=== PATIENT | female | born 1990 | race Caucasian/White ===

== ENCOUNTER 2018-11-18 13:55 | Emergency (ER) | payer BC ==
[~2018-11-18] VITALS: Ht 157.5 cm; Wt 110.5 kg
[~2018-11-18 13:55] MED LIST: LEVO25TA6 PO
[2018-11-18 14:17] VITALS: BP 151/43; PULSE 76; RESP 18; Ht 157.5 cm; Wt 110.5 kg
[2018-11-18] MEDS ORDERED: CYCL10TA7 PO (15:05)
[2018-11-18] MEDS ORDERED: NAPR-985 PO (15:05)
[2018-11-18] MEDS ORDERED: HYDR-4011 PO (15:05)
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
== END 2018-11-18 15:50 | disposition home or self-care (01) ==
LOC: FTE 13:55
DX: M54.2 Cervicalgia (principal); J45.909 Unspecified asthma, uncomplicated; E03.9 Hypothyroidism, unspecified
CPT/HCPCS: 99283